=== PATIENT | male | born 1990 | race Caucasian/White ===

== ENCOUNTER 2019-12-02 12:29 | Emergency (ER) | payer OTHER ==
[2019-12-02 12:35] VITALS: BP 148/95; PULSE 71; RESP 18; TEMP 97.9
[2019-12-02] MEDS ORDERED: PROPARACAINE 0.5% OPHTH DROPS 15 ML BTL BOTH EYES STA (12:39)
[2019-12-02] MEDS ORDERED: FLUORESCEIN STRIPS 1 MG STRIP BOTH EYES ONE (12:39)
--- NOTE | 2019-12-02 13:10 | ED ---
General Adult HPI - General Chief complaint: Eye Problems Stated complaint: Eye Injury Time Seen by Provider: 12/02/19 12:38 Source: patient, RN notes reviewed, old records reviewed Mode of arrival: ambulatory Limitations: no limitations - History of Present Illness Initial comments: 29-year-old male otherwise healthy presenting for evaluation of suspected foreign body in the right eye. Patient states he was grinding metal yesterday with safety glasses on, did not feel any ocular foreign body or irritation at that time later in the day he was underneath a car working on exhaust and did feel foreign body sensation at that time. Believes it was rust from the exhaust. He attempted to remove this himself without success. Foreign-body is in the right thigh. No other complaints. - Related Data Allergies Allergy/AdvReac Type Severity Reaction Status Date / Time Penicillins Allergy Rash/Hives Verified 12/02/19 12:31 Review of Systems ROS Statement: Those systems with pertinent positive or pertinent negative responses have been documented in the HPI. ROS Other: All systems not noted in ROS Statement are negative. Past Medical History Past Medical History: No Reported History History of Any Multi-Drug Resistant Organisms: None Reported Past Surgical History: No Surgical Hx Reported, Hernia Repair Past Psychological History: No Psychological Hx Reported Smoking Status: Current every day smoker Past Alcohol Use History: None Reported Past Drug Use History: Marijuana General Exam Limitations: no limitations General appearance: alert, in no apparent distress Head exam: Present: atraumatic, normocephalic Eye exam: Present: PERRL, other (Pupils are equal reactive to light, no hyphema, there is abrasion and foreign body in the right cornea at the 9 o'clock position. Negative Marc's test. Anterior chamber is clear.) Neck exam: Present: normal inspection Respiratory exam: Absent: respiratory distress Cardiovascular Exam: Present: regular rate, normal rhythm Course Vital Signs 12/02/19 12:32 Temperature 97.9 F Pulse Rate 71 Respiratory 18 Rate Blood Pressure 148/95 O2 Sat by Pulse 100 Oximetry Medical Decision Making - Medical Decision Making 29-year-old male with right corneal foreign body at the 9 o'clock position. Fluorescein showing surrounding abrasion, negative Marc's test. Attempt by b oth myself and second provider is unsuccessful at foreign body removal. Since deeply embedded into the cornea. Patient will be referred to ophthalmology. He is initiated on erythromycin ointment. He will take Motrin for a pain or irritation. Right eye corneal foreign body and abrasion. Disposition Clinical Impression: Corneal abrasion Disposition: HOME SELF-CARE Condition: Good Instructions (If sedation given, give patient instructions): Eye Foreign Body (ED), Corneal Abrasion (ED) Is patient prescribed a controlled substance at d/c from ED?: No Referrals: None,Stated [Primary Care Provider] - 1-2 days Hardik Olvera MD [STAFF PHYSICIAN] - 1-2 days Dipesh Alexandre MD [STAFF PHYSICIAN] - 1-2 days Helder Sahu MD [STAFF PHYSICIAN] - 1-2 days Time of Disposition: 13:05
[2019-12-02] MEDS ORDERED: ERYTHROMYCIN 5 MG/GM OPHTH OINT 3.5 GM TUBE RIGHT EYE SCH (13:15)
== END 2019-12-02 13:45 | disposition home or self-care (01) ==
LOC: EC 12:29
DX: T15.01XA Foreign body in cornea, right eye, initial encounter (principal); F17.200 Nicotine dependence, unspecified, uncomplicated; Z88.0 Allergy status to penicillin
CPT/HCPCS: 99283